=== PATIENT | male | born 1940 | race Caucasian/White ===

== ENCOUNTER 2019-07-20 11:33 | Observation (INO) ==
[2019-07-20 12:49] LABS: Hematocrit 47.9 % (37.5-50.1); Hemoglobin 15.5 g/dL (12.9-16.9); Mean Corpuscular HGB Conc 32.4 g/dL (31.6-35.5); Mean Corpuscular Volume 92.6 fL (83.0-100.0); Mean Platelet Volume 10.9 fL (9.4-12.4); Platelet Count 223 K/mcL (140-400); Red Blood Count 5.17 M/mcL (4.19-5.50); Red Cell Distribution Width 14.6 % (11.5-14.5); White Blood Count 6.2 K/mcL (4.3-11.1)
[2019-07-20 12:56] LABS: Bilirubin,Urine Negative (Negative); Blood,Urine Negative (Negative); Clarity,Urine Clear (Clear); Color,Urine Yellow (Yellow); Glucose,Urine (UA) Normal (Normal); Ketones,Urine Negative (Negative); Leukocyte Esterase,Urine Negative (Negative); Nitrite,Urine Negative (Negative); Protein,Urine Trace mg/dL (Neg-Trace); Specific Gravity,Urine 1.015 (1.010-1.025); Urobilinogen,Urine Normal (Normal)
[2019-07-20 13:00] LABS: Amphetamine Screen,Urine Negative ng/mL (Cutoff=1000); Barbiturate Screen,Urine Negative ng/mL (Cutoff=200); Benzodiazepines Screen,Urine Negative ng/mL (Cutoff=200); Cannabinoid Screen,Urine Negative ng/mL (Cutoff = 50); Cocaine Screen,Urine Negative ng/mL (Cutoff= 300); Opiate Screen,Urine Negative ng/mL (Cutoff=300); Phencyclidine Screen,Urine Negative ng/mL (Cutoff=25)
[2019-07-20 13:01] LABS: Prothrombin Time 11.3 Seconds (9.4-12.1)
[2019-07-20 13:12] LABS: Alanine Aminotransferase 23 Units/L (7-52); Albumin 4.4 g/dL (3.5-5.7); Albumin/Globulin Ratio 1.5 (1.1-2.2); Alkaline Phosphatase 93 Units/L (34-104); Aspartate Amino Transferase 30 Units/L (13-39); BUN/Creatinine Ratio 26 (6-26); Bilirubin,Total 0.7 mg/dL (0.3-1.0); Blood Urea Nitrogen 23 mg/dL (8-23); Calcium 9.6 mg/dL (8.6-10.3); Carbon Dioxide 29 mEq/L (23-29); Chloride 102 mEq/L (98-107); Glucose 99 mg/dL (70-105); Osmolality,Calculated 294 (280-300); Potassium 3.9 mEq/L (3.5-5.1); Sodium 140 mEq/L (136-145); Total Protein 7.4 g/dL (6.4-8.9); Troponin I < 0.03 ng/mL (< 0.04); eGFR For African Americans > 60 (> 60); eGFR For Non-African Americans > 60 (> 60)
[2019-07-20] MEDS ORDERED: Aspirin 325 MG TABLET PO ONE (15:39)
[2019-07-20] MEDS ORDERED: *HR* Labetalol 20 MG/4 ML SYRINGE IVP PRN ×2 (18:33→21:29)
[2019-07-20] MEDS ORDERED: Nitroglycerin 0.4 MG TAB.SUBL SL PRN (21:29)
[2019-07-21 05:16] LABS: Chol/HDL Ratio 3.3 (0-4.9)
[2019-07-21 05:30] LABS: Thyroid Stimulating Hormone 2.143 mcIU/mL (0.340-5.600)
[2019-07-21] MEDS: *HR* Enoxaparin 40 MG/0.4 ML SYRINGE SQ SCH (05:36)
[2019-07-21 08:35] LABS: Estimated Average Glucose 114 mg/dl
[2019-07-21] MEDS ORDERED: Aspirin Enteric Coated 81 MG Tablet PO SCH (09:00)
[2019-07-21] MEDS ORDERED: Fluticasone Propionate Nasal 50 MCG/SPRAY BOTTLE NS PRN (09:00)
[2019-07-21] MEDS: Budesonide/Formoterol 80/4.5 1 PUFF INH IH SCH ×2 (09:58→20:00)
[2019-07-21] MEDS: Bumetanide 1 MG TABLET PO SCH ×2 (10:52→17:32)
[2019-07-21] MEDS ORDERED: *HR* LORazepam 0.5 MG TABLET PO ONE (14:58)
[2019-07-21] MEDS ORDERED: Pregabalin 50 MG CAPSULE PO SCH (21:00)
[2019-07-22] MEDS: *HR* Enoxaparin 40 MG/0.4 ML SYRINGE SQ SCH (06:04)
[2019-07-22 07:39] VITALS: BP 97/59
[2019-07-22] MEDS: Budesonide/Formoterol 80/4.5 1 PUFF INH IH SCH (07:48)
== END 2019-07-22 10:23 | disposition home or self-care (01) ==
LOC: EMEROOARM 11:33 → 3BNU 11:33 → SUATTDRO 17:06 → 3BNU 19:30
PROVIDERS: ADMIT Family Medicine; ATTEND Internal Medicine